=== PATIENT | female | born 1975 | race Caucasian/White ===

== ENCOUNTER 2020-10-08 21:01 | Observation (INO) | payer BC ==
[~2020-10-08] VITALS: Ht 170.2 cm; Wt 112.9 kg
[2020-10-08 22:25] LABS: BILIRUBIN,URINE NEGATIVE (NEGATIVE); BLOOD, URINE NEGATIVE (NEGATIVE); CLARITY/URINE CLEAR (CLEAR); COLOR,URINE YELLOW (YELLOW); GLUCOSE,URINE NEGATIVE (NEGATIVE); KETONES,URINE NEGATIVE (NEGATIVE); LEUKOCYTE ESTERASE ,URINE TRACE (NEGATIVE); NITRITE, URINE NEGATIVE (NEGATIVE); PH,URINE 6.5 (5.0-8.0); PROTEIN URINE NEGATIVE (NEGATIVE); UROBILINOGEN,URINE 0.2 (0.2-1.0)
[2020-10-08 22:29] LABS: BACTERIA,URINE FEW /HPF (None Seen); RBC,URINE 0-3 /HPF (0-3)
[2020-10-08] MEDS ORDERED: FIORCET PO PRN (22:45)
[2020-10-08] MEDS ORDERED: MAG-AL HYDROX/SIMETH 30 ML UDC PO PRN (22:45)
[2020-10-08] MEDS ORDERED: hydrALAZINE HCL 10 MG TABLET PO PRN (22:45)
[2020-10-08] MEDS ORDERED: hydrALAZINE HCL 25 MG TABLET ONE (22:50)
[2020-10-08] MEDS ORDERED: ACETAMINOPHEN 500 MG TABLET PO PRN (23:15)
[2020-10-09] MEDS ORDERED: hydrALAZINE HCL 10 MG TABLET PO ONE (08:00)
[2020-10-09] MEDS ORDERED: ACETAMINOPHEN 325 MG TABLET PO PRN (08:00)
[2020-10-09] MEDS ORDERED: PHENobarbital 30 MG TABLET PO ONE (08:00)
[2020-10-09] MEDS ORDERED: LABETALOL HCL 100 MG TABLET PO ONE (08:15)
[2020-10-09] MEDS ORDERED: LABETALOL HCL 100 MG TABLET PO SCH (21:00)
== END 2020-10-09 13:45 | disposition home or self-care (01) ==
LOC: SPU 21:01
PROVIDERS: ADMIT Specialist; ATTEND Specialist
DX: O13.3 Gestational [pregnancy-induced] hypertension without significant proteinuria, third trimester (principal); O26.893 Other specified pregnancy related conditions, third trimester; R51.9 Headache, unspecified; Z3A.36 36 weeks gestation of pregnancy; Z79.899 Other long term (current) drug therapy
CPT/HCPCS: 81000; G0378 ×2

== ENCOUNTER 2020-10-18 05:05 | Inpatient (IN) | payer BC, SELFPAY ==
[~2020-10-18] VITALS: Ht 170.2 cm; Wt 113.9 kg
[2020-10-18 06:07] VITALS: BP_SYST 145
[2020-10-18] MEDS ORDERED: LR 1,000 ML IV SCH (06:45)
[2020-10-18] MEDS ORDERED: TERBUTALINE SULFATE 1 MG/ML VIAL SUBCUT ONE (07:00)
[2020-10-18] MEDS ORDERED: LR 1,000 ML IV ONE (07:00)
[2020-10-18 07:03] LABS: BASOPHILS % (AUTO) 0.3 % (0.0-2.0); EOSINOPHILS # (AUTO) 0.1 K/uL (0.0-0.4); EOSINOPHILS % (AUTO) 1.1 % (0.0-4.0); HEMATOCRIT 36.9 % (36-48); HEMOGLOBIN 12.4 g/dL (12.0-16.0); LYMPHOCYTES # (AUTO) 2.1 K/uL (1.0-5.5); LYMPHOCYTES % (AUTO) 23.9 % (20.5-51.5); MEAN CORPUSCULAR HEMOGLOBIN 30 pg (27-31); MEAN CORPUSCULAR HGB CONC 34 % (32-36); MEAN CORPUSCULAR VOLUME 89 fL (79.0-98.0); MONOCYTES # (AUTO) 0.5 K/uL (0.0-1.0); MONOCYTES % (AUTO) 5.8 % (1.7-9.3); NEUTROPHILS % (AUTO) 68.9 % (40.0-70.0); PLATELET COUNT (AUTO) 192 K/uL (130-430); RED BLOOD CELL COUNT(AUTO) 4.15 MIL/uL (4.2-6.2); RED CELL DISTRIBUTION WIDTH 15.2 % (9.0-15.0); WHITE BLOOD COUNT (AUTO) 8.7 K/uL (4.8-10.8)
[2020-10-18 07:19] LABS: ALBUMIN 2.4 g/dL (3.4-4.8); CALCIUM 8.4 mg/dL (8.4-11.0); CREATININE 0.8 mg/dL (0.55-1.30); POTASSIUM 4.1 mmol/L (3.5-5.1); TOTAL BILIRUBIN 0.2 mg/dL (0.0-1.0); URIC ACID 5.6 mg/dL (2.4-7.0)
[2020-10-18 07:43] LABS: BILIRUBIN,URINE NEGATIVE (NEGATIVE); CLARITY/URINE CLEAR (CLEAR); COLOR,URINE YELLOW (YELLOW); GLUCOSE,URINE NEGATIVE (NEGATIVE); KETONES,URINE NEGATIVE (NEGATIVE); LEUKOCYTE ESTERASE ,URINE 2+ (NEGATIVE); NITRITE, URINE NEGATIVE (NEGATIVE); PH,URINE 6.5 (5.0-8.0); PROTEIN URINE 2+ (NEGATIVE); UROBILINOGEN,URINE 0.2 (0.2-1.0)
[2020-10-18 08:44] LABS: BLOOD, URINE TRACE (NEGATIVE)
[2020-10-18 08:45] LABS: BACTERIA,URINE MODERATE /HPF (None Seen); WBC,URINE 20-50 /HPF (0-3)
[2020-10-18] MEDS ORDERED: DINOPROSTONE 10 MG SUPP VG ONE (10:30)
[2020-10-18] MEDS ORDERED: ceFAZolin SODIUM 2 GM in D5W 100 ML IV SCH (10:30)
[2020-10-18] MEDS ORDERED: CEFAZOLIN 2 GM IVPB PREMIX 50 ML IV ONE (12:30)
[2020-10-18] MEDS ORDERED: NALBUPHINE HCL 10 MG/ML AMP ONE (16:19)
[2020-10-18] MEDS: ceFAZolin SODIUM 1 GM in D5W 50 ML IV SCH (18:00)
[2020-10-18] MEDS ORDERED: OXYTOCIN/0.9 % SODIUM CHLORIDE 20 UNITS/1,000 ML BAG IV ONE (20:55)
[2020-10-18] MEDS ORDERED: MORPHINE SULFATE 10MG/10ML PF AMP EP ONE (20:55)
[2020-10-18] MEDS ORDERED: BUPIVACAINE /PF 0.75% 10 ML VIAL INJ ONE (20:55)
[2020-10-18] MEDS ORDERED: DEXAMETHASONE SOD PHOSPHATE 4 MG/ML VIAL IVP ONE (20:55)
[2020-10-18] MEDS ORDERED: OXYTOCIN 10 UNIT/ML VIAL IV ONE (20:55)
[2020-10-18] MEDS ORDERED: METOCLOPRAMIDE HCL 10 MG/2 ML VIAL IVP ONE (20:55)
[2020-10-18] MEDS ORDERED: NS IRRIG SOLN 1000 ML IR ONE (20:55)
[2020-10-18] MEDS ORDERED: LR 1,000 ML IV.SOLN IV ONE (20:55)
[2020-10-18] MEDS ORDERED: ONDANSETRON HCL 4 MG/2 ML VIAL IVP ONE (20:55)
[2020-10-18] MEDS ORDERED: BUPIVACAINE /EPINEPHRINE/PF 0.25% 30 ML VIAL INJ ONE (20:55)
[2020-10-18] MEDS: LEVOTHYROXINE SODIUM 0.025 MG TABLET PO SCH (20:58)
[2020-10-18] MEDS ORDERED: LEVOTHYROXINE SODIUM 0.025 MG TABLET PO SCH (21:00)
[2020-10-18] MEDS: NALBUPHINE HCL 10 MG/ML AMP IVP PRN (22:50)
[2020-10-18] MEDS ORDERED: TEMAZEPAM 15 MG CAPSULE PO PRN (23:45)
[2020-10-19] MEDS ORDERED: DINOPROSTONE 10 MG SUPP VG ONE
[2020-10-19] MEDS: ceFAZolin SODIUM 1 GM in D5W 50 ML IV SCH ×2 (01:49→09:54)
[2020-10-19] MEDS ORDERED: CALCIUM CARBONATE 500 MG/ TAB.CHEW PO PRN (02:00)
[2020-10-19] MEDS: NALBUPHINE HCL 10 MG/ML AMP IVP PRN (06:25)
[2020-10-19] MEDS ORDERED: hydrALAZINE HCL 10 MG TABLET PO SCH (09:00)
[2020-10-19] MEDS ORDERED: LABETALOL HCL 100 MG TABLET PO SCH (09:00)
[2020-10-19] MEDS ORDERED: CEFAZOLIN 2 GM IVPB PREMIX 50 ML IV ONE (17:00)
[2020-10-19] MEDS ORDERED: HYDROmorphone 2 MG/ML VIAL IVP PRN ×2 (21:45)
[2020-10-19] MEDS ORDERED: DIPHENHYDRAMINE INJ 50 MG/ML VIAL IVP PRN (21:45)
[2020-10-19] MEDS ORDERED: NALOXONE HCL 1 MG in NACL 0.9% 1,000 ML IV PRN ×4 (21:45)
[2020-10-19] MEDS ORDERED: MEPERIDINE HCL/PF 25 MG/ML DISP.SYRIN IVP PRN ×2 (21:45)
[2020-10-19] MEDS ORDERED: KETOROLAC TROMETHAMINE 60 MG/2 ML VIAL IM PRN (21:45)
[2020-10-19] MEDS ORDERED: NALOXONE HCL 0.4 MG/ML AMP (NARCAN) IVP PRN ×4 (21:45)
[2020-10-19] MEDS ORDERED: LR 1,000 ML IV SCH ×2 (21:45→23:00)
[2020-10-19] MEDS ORDERED: HYDROmorphone 1 MG INJ. 1 MG/ML CARTRIDGE IVP PRN (21:45)
[2020-10-19] MEDS ORDERED: MORPHINE SULFATE 10MG/10ML PF AMP SP SCH (21:45)
[2020-10-19] MEDS ORDERED: DIPHENHYDRAMINE HCL 50 MG CAPSULE PO PRN (21:45)
[2020-10-19] MEDS ORDERED: ONDANSETRON HCL 4 MG/2 ML VIAL IVP PRN (21:45)
[2020-10-19 22:05] VITALS: BP_SYST 128
[2020-10-19] MEDS ORDERED: RHO(D) IMMUNE GLOBULIN/MALTOSE 1500 UNITS/1.3 ML (WINHRO) IM PRN (23:00)
[2020-10-19] MEDS ORDERED: ANUSOL 1 EA SUPP.RECT (PREPARATION H) RC PRN (23:00)
[2020-10-19] MEDS ORDERED: LANOLIN 7 GM OINT. TP PRN (23:00)
[2020-10-19] MEDS ORDERED: OXYTOCIN/0.9 % SODIUM CHLORIDE 1,000 ML IV SCH (23:00)
[2020-10-19] MEDS ORDERED: DIPH-TET-PERTUS Vaccine 0.5 ML VIAL (ADACEL) I.M. PRN (23:00)
[2020-10-19] MEDS ORDERED: SENNOSIDES/DOCUSATE SODIUM 1 TAB TABLET(SENOKOT-S) PO PRN (23:00)
[2020-10-19] MEDS ORDERED: MEASLES,MUMPS&RUBELLA VACC/PF 12500 UNIT/0.5 ML VIAL SUBQ PRN (23:00)
[2020-10-19] MEDS: LEVOTHYROXINE SODIUM 0.025 MG TABLET PO SCH (23:20)
[2020-10-20] MEDS ORDERED: hydrALAZINE HCL 10 MG TABLET PO PRN
[2020-10-20] MEDS ORDERED: OXYTOCIN/0.9 % SODIUM CHLORIDE 1,000 ML IV ONE (00:27)
[2020-10-20] MEDS ORDERED: OXYTOCIN/0.9 % SODIUM CHLORIDE 1,000 ML IV SCH (00:30)
[2020-10-20] MEDS: SIMETHICONE 80 MG TAB.CHEW PO PRN ×5 (00:44→20:30)
[2020-10-20] MEDS ORDERED: ceFAZolin SODIUM 1 GM in D5W 50 ML IV SCH (02:00)
[2020-10-20] MEDS: CEFAZOLIN 1 GM IVPB PREMIX 50 ML IV SCH ×3 (03:15→15:58)
[2020-10-20] MEDS: KETOROLAC TROMETHAMINE 30 MG VIAL IVP SCH ×4 (06:09→23:20)
[2020-10-20 07:30] LABS: BASOPHILS % (AUTO) 0.1 % (0.0-2.0); HEMATOCRIT 37.9 % (36-48); HEMOGLOBIN 12.5 g/dL (12.0-16.0); LYMPHOCYTES % (AUTO) 8.2 % (20.5-51.5); MEAN CORPUSCULAR HEMOGLOBIN 30 pg (27-31); MEAN CORPUSCULAR HGB CONC 33 % (32-36); MEAN CORPUSCULAR VOLUME 90 fL (79.0-98.0); MONOCYTES # (AUTO) 0.2 K/uL (0.0-1.0); MONOCYTES % (AUTO) 1.6 % (1.7-9.3); NEUTROPHILS # (AUTO) 10.7 K/uL (1.8-7.7); NEUTROPHILS % (AUTO) 90.1 % (40.0-70.0); PLATELET COUNT (AUTO) 239 K/uL (130-430); RED BLOOD CELL COUNT(AUTO) 4.23 MIL/uL (4.2-6.2); RED CELL DISTRIBUTION WIDTH 14.8 % (9.0-15.0); WHITE BLOOD COUNT (AUTO) 11.9 K/uL (4.8-10.8)
[2020-10-20] MEDS: DOCUSATE SODIUM 100 MG CAPSULE PO PRN ×2 (09:19→20:30)
[2020-10-20 18:06] LABS: FTA-Ab (T PALLIDUM) Non Reactive (Non Reactive)
[2020-10-20] MEDS: LEVOTHYROXINE SODIUM 0.025 MG TABLET PO SCH (20:31)
[2020-10-21] MEDS: IBUPROFEN 600 MG TABLET PO SCH ×4 (05:30→23:57)
[2020-10-21] MEDS: SIMETHICONE 80 MG TAB.CHEW PO PRN ×2 (12:02→23:58)
[2020-10-21] MEDS: BISACODYL 10 MG/SUPPOSITORY RC PRN ×2 (12:02→20:48)
[2020-10-21] MEDS: DOCUSATE SODIUM 100 MG CAPSULE PO PRN (20:47)
[2020-10-21] MEDS: LEVOTHYROXINE SODIUM 0.025 MG TABLET PO SCH (20:47)
[2020-10-22] MEDS: IBUPROFEN 600 MG TABLET PO SCH (05:38)
[2020-10-22] MEDS: SIMETHICONE 80 MG TAB.CHEW PO PRN (05:39)
== END 2020-10-22 09:25 | disposition home or self-care (01) | DRG 788 ==
LOC: SPU 05:05 → OBSVTOIN 06:30 → SPU 10-19 22:35
PROVIDERS: ADMIT Specialist; ATTEND Specialist
PROC: 10D00Z1 Extraction of Products of Conception, Low, Open Approach (ICD-10-PCS; principal; 2020-10-19 20:00)
DX: O14.94 Unspecified pre-eclampsia, complicating childbirth (principal); O13.4 Gestational [pregnancy-induced] hypertension without significant proteinuria, complicating childbirth; O61.9 Failed induction of labor, unspecified; O62.2 Other uterine inertia; E66.01 Morbid (severe) obesity due to excess calories; Z20.822 Contact with and (suspected) exposure to COVID-19; O99.214 Obesity complicating childbirth; Z3A.38 38 weeks gestation of pregnancy; Z37.0 Single live birth
CPT/HCPCS: 36415; 76805-TC; 80053; 81000-TC; 81002-TC; 84550-TC; 85025; 85384-TC; 86592; 86780; 86886; 86900; 86901; 94760; G0378; J0690; J1100; J1885; J2274; J2300; J2310; J2405; J2590; J2765; J3490; J7030; J7060; J7120